=== PATIENT | male | born 1940 | race Caucasian/White ===

== ENCOUNTER 2020-05-24 10:39 | Outpatient (CLI) | payer MEDICARE, OTHER ==
[2020-05-24 16:23] LABS: PSA FREE 1.104 ng/mL (0.16-2.81)
[2020-05-24 16:24] LABS: BUN - BLOOD UREA NITROGEN 23 mg/dL (6-20); CALCIUM 9.6 mg/dL (8.5-10.3); CARBON DIOXIDE - CO2 24 mmol/L (21-32); CHLORIDE 105 mmol/L (101-111); CHOL/HDL RATIO 3.4 (<5.0); CHOLESTEROL 181 mg/dL; CREATININE 1.1 mg/dL (0.6-1.2); GLUCOSE 146 mg/dL (70-100); HDL CHOLESTEROL 54 mg/dL; LDL CHOLESTEROL,CALCULATED 92 mg/dL; LDL/HDL RATIO 1.7 (<3.6); PSA TOTAL 4.556 ng/mL (0.000-2.000); SODIUM 140 mmol/L (135-145); VLDL CHOLESTEROL 35 mg/dL
[2020-05-24 20:21] LABS: HEMOGLOBIN A1c% 6.1 % (4.27-6.07)
== END 2020-05-24 10:40 | disposition home or self-care (01) ==
LOC: LAB.S 10:39
PROVIDERS: ATTEND Internal Medicine
DX: R97.20 Elevated prostate specific antigen [PSA] (principal); D51.9 Vitamin B12 deficiency anemia, unspecified; M17.0 Bilateral primary osteoarthritis of knee; I10 Essential (primary) hypertension; N40.1 Benign prostatic hyperplasia with lower urinary tract symptoms
CPT/HCPCS: 36415; 80048; 80061; 82607; 83036; 83721; 84153; 84154

== ENCOUNTER 2020-11-19 08:27 | Outpatient (CLI) | payer OTHER, MEDICARE ==
[2020-11-19 14:55] LABS: BUN - BLOOD UREA NITROGEN 21 mg/dL (6-20); CALCIUM 9.6 mg/dL (8.5-10.3); CARBON DIOXIDE - CO2 29 mmol/L (21-32); CHLORIDE 100 mmol/L (101-111); CHOL/HDL RATIO 2.9 (<5.0); CHOLESTEROL 168 mg/dL; CREATININE 0.9 mg/dL (0.6-1.2); GFR - MDRD 82 (>89); GLUCOSE 153 mg/dL (70-100); HDL CHOLESTEROL 58 mg/dL; LDL CHOLESTEROL,CALCULATED 83 mg/dL; LDL/HDL RATIO 1.4 (<3.6); POTASSIUM 4.3 mmol/L (3.5-5.0); SODIUM 138 mmol/L (135-145); TRIGLYCERIDES 136 mg/dL; VLDL CHOLESTEROL 27 mg/dL
[2020-11-19 15:11] LABS: PSA FREE 1.161 ng/mL (0.16-2.81)
[2020-11-19 15:12] LABS: PSA TOTAL 5.455 ng/mL (0.000-2.000)
[2020-11-19 20:29] LABS: ESTIMATED AVERAGE GLUCOSE 123 mg/dL (70-100); HEMOGLOBIN A1c% 5.9 % (4.27-6.07)
== END 2020-11-19 08:28 | disposition home or self-care (01) ==
LOC: LAB.S 08:27
PROVIDERS: ATTEND Internal Medicine
DX: Z00.8 Encounter for other general examination (principal); I10 Essential (primary) hypertension; R97.20 Elevated prostate specific antigen [PSA]; D51.9 Vitamin B12 deficiency anemia, unspecified; M17.0 Bilateral primary osteoarthritis of knee; C44.90 Unspecified malignant neoplasm of skin, unspecified; H26.9 Unspecified cataract; K21.9 Gastro-esophageal reflux disease without esophagitis; M10.9 Gout, unspecified; K64.9 Unspecified hemorrhoids; Z90.49 Acquired absence of other specified parts of digestive tract; Z87.438 Personal history of other diseases of male genital organs; F43.10 Post-traumatic stress disorder, unspecified; H90.3 Sensorineural hearing loss, bilateral; K42.9 Umbilical hernia without obstruction or gangrene
CPT/HCPCS: 36415; 80048; 80061; 82607; 83036; 83721; 84153; 84154